=== PATIENT | female | born 1990 | race Caucasian/White ===

== ENCOUNTER 2022-10-12 02:30 | Emergency (ER) | payer MEDICAID, OTHER ==
[~2022-10-12] VITALS: Ht 170.2 cm; Wt 85.7 kg
[~2022-10-12 02:30] MED LIST: Hydrocodone Bit/Acetaminophen PO; IBUP-1096 PO; LEVO500T2 PO
[2022-10-12] MEDS ORDERED: CEFTRIAXONE 1 G in IV DEXTROSE 5% 50 ML IV ONE (03:45)
[2022-10-12] MEDS ORDERED: IV NORMAL SALINE 1000 ML BAG IV ONE (03:45)
[2022-10-12] MEDS ORDERED: VANCOMYCIN IV 1,500 MG in IV DEXTROSE 5% 250 ML IV ONE (03:45)
[2022-10-12] MEDS ORDERED: VANCOMYCIN IV 200 ML ONE (04:02)
[2022-10-12] MEDS ORDERED: CEFTRIAXONE /D5W 50ML IVPB **ER PYXIS IV ONE (04:02)
[2022-10-12] MEDS ORDERED: VANCOMYCIN HCL 500 MG VIAL ONE (04:03)
[2022-10-12 04:10] LABS: HEMATOCRIT 31.2 % (31.2-41.9); MEAN CORPUSCULAR HEMOGLOBIN 28.5 uug (24.7-32.8); MEAN CORPUSCULAR VOLUME 85.8 fL (75.5-95.3); PLATELET COUNT (AUTO) 360 K/uL (179-408)
[2022-10-12 04:18] LABS: CREATININE 0.7 mg/dL (0.6-1.3); POTASSIUM 3.2 mmol/L (3.5-5.1)
--- NOTE | 2022-10-12 04:21 | NUR ---
Ambulated to room #5, with LLE edema and redness x 5 days. Informed of plan of care, has been seen by ER provider. Placed on monitor, #20g established in right forearm, blood collected and sent to lab. IVF infusing as per order. Patient has been made aware that she will be admitted to the hospital, awaiting room assignment, will continue to monitor.
[2022-10-12] MEDS ORDERED: POTASSIUM CHLORIDE 20 MEQ TAB.PRT.SR PO ONE (04:30)
[2022-10-12 04:31] LABS: BILIRUBIN,DIRECT 0.3 mg/dL (0.0-0.2); BILIRUBIN,TOTAL 0.8 mg/dL (0.2-1.0)
--- NOTE | 2022-10-12 05:05 | NUR ---
Dr. Francisco speaking with Dr. Olea of [facility].
[2022-10-12 05:23] VITALS: O2SAT 95
--- NOTE | 2022-10-12 05:23 | NUR ---
Patient ambulated to bathroom and back to bed, IVF infusing well, aware will be transfered awaiting room assignment.
[2022-10-12] MEDS ORDERED: POTASSIUM CHLORIDE 20 MEQ TAB.PRT.SR ONE (05:35)
--- NOTE | 2022-10-12 05:38 | NUR ---
Patient resting in bed without any c/o.
--- NOTE | 2022-10-12 06:22 | NUR ---
IVF continues to infuse via the pump as per order. Patient sleeping, remains easy to arouse.
--- NOTE | 2022-10-12 06:38 | NUR ---
Received call back from [facility] case reviewer, with transfer information: Patient going to [facility], ER to ER transfer, number to report , Accepted by Dr. Olea, will call back with [facility] for transport.
--- NOTE | 2022-10-12 06:59 | NUR ---
Report endorsed to BECCA Barker.
--- NOTE | 2022-10-12 07:13 | NUR ---
Gave report to Clarita GLYNN).
--- NOTE | 2022-10-12 08:00 | NUR ---
Pt picked up and transferred by [facility]. Gave report to [facility]. Vital signs stable by transfer. All belongings taken by Pt. Paperwork given to [facility]. Pt left ER safely and in stable condition.
== END 2022-10-12 08:16 | disposition short-term general hospital (02) ==
LOC: ER 02:30
DX: L03.116 Cellulitis of left lower limb (principal); E87.6 Hypokalemia; A41.9 Sepsis, unspecified organism; F17.210 Nicotine dependence, cigarettes, uncomplicated; Z79.2 Long term (current) use of antibiotics; Z79.1 Long term (current) use of non-steroidal anti-inflammatories (NSAID)
CPT/HCPCS: 99285; 96365; 96366; 80076; 80048; 83880; 85025; 85379; 85730; 86140; 87040 ×2; 36415; 96368; 83605; J0696; J3370 ×2; J7040; A4663